=== PATIENT | female | born 1980 | race Caucasian/White ===

== ENCOUNTER 2018-11-04 11:01 | Emergency (ER) | payer SELFPAY ==
[2018-11-04] MEDS ORDERED: MORPHINE 4 MG/ML SYR ONE (12:23)
[2018-11-04] MEDS ORDERED: ONDANSETRON 4 MG/2 ML VIAL ONE (12:23)
[2018-11-04 12:42] LABS: Barbiturates NEGATIVE (NEGATIVE); Benzodiazepines NEGATIVE (NEGATIVE); Cocaine NEGATIVE (NEGATIVE); METHAMPHETAM POSITIVE (NEGATIVE); Methadone NEGATIVE (NEGATIVE); Opiates NEGATIVE (NEGATIVE); Phencyclidine NEGATIVE (NEGATIVE); THC Cannibis POSITIVE (NEGATIVE)
[2018-11-04 12:43] LABS: Absolute Monocytes 0.6 K/uL (0.1-1.3); Absolute Neutrophil 6.2 K/uL (1.8-8.0); Basophils % 0.6 % (0-1.3); Hematocrit 41.7 % (36.0-45.0); Lymphocytes % 29.2 % (15.3-44.8); MPV 8.2 fL (7.6-11.3); Monocytes % 5.5 % (3.3-12.3); RBC Red Blood Cell Count 4.56 M/uL (3.86-4.86)
[2018-11-04] MEDS ORDERED: KETOROLAC 30 MG/ML INJ ONE (12:58)
[2018-11-04 13:01] LABS: ALT/SGPT 29 U/L (12-78); AST/SGOT 12 U/L (15-37); Alkaline Phosphatase 109 U/L (45-117); BUN Blood Urea Nitrogen 10 mg/dL (7-18); Bicarbonate 31 mmol/L (21-32); Bilirubin Total 0.2 mg/dL (0.2-1.0); Glucose Level 90 mg/dL (74-106); Potassium 4.2 mmol/L (3.5-5.1); Protein, Total 7.6 g/dL (6.4-8.2); Sodium Level 139 mmol/L (136-145)
--- NOTE | 2018-11-04 14:25 | RAD REPORT ---
EXAM DESCRIPTION: CTSpine Lumbar W/Cont3/ 2:13 pm CLINICAL HISTORY: Back pain/radiculopathy COMPARISON: None TECHNIQUE: Computed axial tomography lumbar spine was obtained with coronal and sagittal reconstruct ion. 50 cc Isovue-[address] scans are performed using dose optimization technique as appropriate and may include automated exposure control or mA/KV adjustment according to patient size. FINDINGS: Mild to moderate compression fracture involves the L1 vertebral body. Loss of vertebral he ight approximately 35%. The fracture appears subacute. Retropulsion of bone into the spinal canal res ults in approximately 15% spinal stenosis. Fractures involve the right transverse processes of L2, L3 and L4. Callus formation is present at the fracture sites. The fracture appears late subacute. A large bulging/disc herniation is not seen. No abnormal enhancement is displayed. IMPRESSION: Mild to moderate compression fracture involves the L1 vertebral body which appears subac [place] L2, L3 and L4 right transverse processes fractures which appear late subacute
--- NOTE | 2018-11-04 15:10 | ER ---
Nurse's Notes [facility] Name: Janine Mcgee Age: 38 yrs Sex: Female : 1980 Arrival Date: 11/04/2018 Time: 11:03 Bed 10 Private MD: Diagnosis: Fracture of first lumbar vertebra Presentation: 11/04 11:12 Presenting complaint: Patient states: Low back pain for about 5 days now, reports sg worsening with laying flat in bed, reports painful with ambulation, denies any urinary symtpoms, denies history of kidney stones, reports nausea. Transition of care: patient was not received from another setting of care. Onset of symptoms was November 04, 2018. Risk Assessment: Do you want to hurt yourself or someone else? Patient reports no desire to harm self or others. Initial Sepsis Screen: Does the patient meet any 2 criteria? No. Patient's initial sepsis screen is negative. Does the patient have a suspected source of infection? No. Patient's initial sepsis screen is negative. Care prior to arrival: None. 11:12 Method Of Arrival: Ambulatory sg 11:12 Acuity: KRISTI 4 sg RISK ANALYST: 11:10 LMP 11/04/2018 sg Historical: - Allergies: 11:10 No Known Allergies; sg - Home Meds: 11:10 None [Active]; sg - PMHx: 11:30 Uses Meth (injected); aa5 - PSHx: 11:10 None; sg - Immunization history:: Adult Immunizations not up to date. - Social history:: Smoking status: Patient uses tobacco products, smokes one-half pack cigarettes per day, Patient uses street drugs, Methamphetamine (Meth) injected . - Ebola Screening: : Patient negative for fever greater than or equal to 101.5 degrees Fahrenheit, and additional compatible Ebola Virus Disease symptoms Patient denies exposure to infectious person Patient denies travel to an Ebola-affected area in the 21 days before illness onset No symptoms or risks identified at this time. Screenin:00 Abuse screen: Denies threats or abuse. Nutritional screening: No deficits noted. aa5 Tuberculosis screening: No symptoms or risk factors identified. Fall Risk None identified. Assessment: 11:30 General: Appears uncomfortable, Behavior is calm, cooperative. Pain: Complains of pain aa5 in lumbar area, left low back and right low back Pain currently is 10 out of 10 on a pain scale. Quality of pain is described as sharp, shooting, Pain began x 5 days ago Is continuous, Aggravated by supine position. Neuro: Level of Consciousness is awake, alert, obeys commands, Oriented to person, place, time, situation. Cardiovascular: Heart tones S1 S2 present Rhythm is regular. Respiratory: Airway is patent Respiratory effort is even, unlabored, Respiratory pattern is regular, symmetrical. GI: No signs and/or symptoms were reported involving the gastrointestinal system. Patient currently denies nausea, vomiting. : No signs and/or symptoms were reported regarding the genitourinary system. EENT: No signs and/or symptoms were reported regarding the EENT system. Derm: Skin is pink, warm \\T\\ dry. Musculoskeletal: Range of motion: intact in all extremities. 11:30 Reassessment: Pt denies known injury. . aa5 12:23 Reassessment: Patient and/or family updated on plan of care and expected duration. Pain aa5 level reassessed. Patient is alert, oriented x 3, equal unlabored respirations, skin warm/dry/pink. Notified of wait time for lab results. Pt's family at bedside. Call mclean within reach . 12:45 Reassessment: Patient is alert, oriented x 3, equal unlabored respirations, skin aa5 warm/dry/pink. Pt states "the morphine only helped a little bit". Rates pain a 8/10 on a pain scale. PA notified. . 13:00 Reassessment: Patient is alert, oriented x 3, equal unlabored respirations, skin aa5 warm/dry/pink. Awaiting CT scan, pt notified of wait time . 14:00 Reassessment: Patient is alert, oriented x 3, equal unlabored respirations, skin aa5 warm/dry/pink. Patient states feeling better. Pain: Pain currently is 6 out of 10 on a pain scale. 15:10 Reassessment: Patient is alert, oriented x 3, equal unlabored respirations, skin aa5 warm/dry/pink. Patient states feeling better. Vital Signs: 11:10 BP 118 / 78; Pulse 87; Resp 18; Temp 98.3; Pulse Ox 100% ; Weight 81.65 kg (R); Height sg 5 ft. 5 in. (165.10 cm); Pain 10/10; 12:20 BP 111 / 77; Pulse 94; Resp 18 S; Pulse Ox 100% on R/A; Pain 9/10; aa5 12:54 BP 101 / 75; Pulse 75; Resp 16 S; Pulse Ox 99% on R/A; aa5 14:00 BP 107 / 70; Pulse 74; Resp 16 S; Temp 98.0(TE); Pulse Ox 99% on R/A; aa5 15:10 BP 108 / 74; Pulse 75; Resp 18 S; Pulse Ox 100% on R/A; aa5 11:10 Body Mass Index 29.95 (81.65 kg, 165.10 cm) ED Course: 11:03 Patient arrived in ED. as 11:08 Arm band placed on. sg 11:13 Triage completed. sg 11:19 Neha Cassidy, ANDREA is Primary Nurse. aa5 11:20 Venkata Garg PA is PHCP. [facility] 11:20 Lupillo Alvarez MD is Attending Physician. jmm 11:30 Patient has correct armband on for positive identification. Bed in low position. Call aa5 light in reach. Side rails up X 1. Adult w/ patient. 12:15 Inserted saline lock: 20 gauge in right antecubital area, using aseptic technique. jp3 Blood collected. 12:15 Initial lab(s) drawn, by me, sent to lab. First set of blood cultures drawn. jp3 12:25 Second set of blood cultures drawn by me. jp3 12:31 Blood Culture Adult (2) Sent. jp3 12:31 ESR Sent. jp3 12:31 Lactate Sent. jp3 12:31 Procalcitonin Sent. jp3 12:31 CMP Sent. jp3 12:31 CBC with Diff Sent. jp3 12:39 Radiology exam delayed due to lab results not completed at this time. (BUN/Creatinine). mw3 14:13 Spine Lumbar W/Cont In Process Unspecified. EDMS 15:08 Washington Dalton MD is Referral Physician. jmm 15:10 No provider procedures requiring assistance completed. IV discontinued, intact, aa5 bleeding controlled, No redness/swelling at site. Pressure dressing applied. Administered Medications: 12:22 Drug: morphine 4 mg Route: IVP; Site: right antecubital; aa5 12:30 Follow up: Response: No adverse reaction aa5 12:22 Drug: Zofran 4 mg Route: IVP; Site: right antecubital; aa5 12:30 Follow up: Response: No adverse reaction aa5 12:46 Drug: TORadol 30 mg Route: IVP; Site: right antecubital; aa5 12:54 Follow up: Response: No adverse reaction aa5 Outcome: 15:09 Discharge ordered by . dahiana 15:13 Discharged to home ambulatory, with significant other. aa5 15:13 Condition: improved 15:13 Discharge instructions given to patient, Instructed on discharge instructions, follow up and referral plans. medication usage, Demonstrated understanding of instructions, follow-up care, medications, Prescriptions given X 1. 15:16 Patient left the ED. aa5 Signatures: Dispatcher [employer] EDMS Ted Spencer RN RN Venkata Denton PA PA jmm Martinez, Amelia as Calderon, Audri, RN RN aa5 Sintia Barragan mw3 Archie Gonzalez jp3 Corrections: (The following items were deleted from the chart) 12:39 12:38 Radiology exam delayed due to lab results not completed at this time. mw3 (BUN/Creatinine) test not completed at this time. mw3 12:52 11:30 Pain: Complains of pain in lumbar area, left low back and right low back Pain aa5 currently is 10 out of 10 on a pain scale. Quality of pain is described as sharp, shooting, Pain began Is continuous, Aggravated by supine position. aa5 13:10 11:10 PMHx: None; aa5
--- NOTE | 2018-11-04 15:10 | EDPHYS ---
Physician Documentation [facility] Name: Janine Mcgee Age: 38 yrs Sex: Female : 1980 Arrival Date: 11/04/2018 Time: 11:03 Bed 10 Private MD: ED Physician Lupillo Alvarez HPI: 11/04 12:00 This 38 yrs old Female presents to ER via Ambulatory with complaints of Low jmm Back Pain. 12:00 The patient presents with pain that is acute. Onset: The symptoms/episode jmm began/occurred gradually, 5 day(s) ago. Modifying factors: The patient symptoms are alleviated by nothing, the patient symptoms are aggravated by walking. This is a 38 year old female that presents to the ED with complaints of lower back pain beginning approx 5 days ago. Patient denies radiation of pain. Patient denies fever, denies dysuria, denies weakness to her legs, denies fecal incontinence. . ENCODING CLERK: 11:10 LMP 11/04/2018 sg Historical: - Allergies: 11:10 No Known Allergies; sg - Home Meds: 11:10 None [Active]; sg - PMHx: 11:30 Uses Meth (injected); aa5 - PSHx: 11:10 None; sg - Immunization history:: Adult Immunizations not up to date. - Social history:: Smoking status: Patient uses tobacco products, smokes one-half pack cigarettes per day, Patient uses street drugs, Methamphetamine (Meth) injected . - Ebola Screening: : Patient negative for fever greater than or equal to 101.5 degrees Fahrenheit, and additional compatible Ebola Virus Disease symptoms Patient denies exposure to infectious person Patient denies travel to an Ebola-affected area in the 21 days before illness onset No symptoms or risks identified at this time. ROS: 12:00 Constitutional: Negative for fever, chills, and weight loss, Cardiovascular: Negative jmm for chest pain, palpitations, and edema, Respiratory: Negative for shortness of breath, cough, wheezing, and pleuritic chest pain. 12:00 Back: Positive for pain with movement. 12:00 All other systems are negative. Exam: 12:00 Head/Face: atraumatic. Eyes: EOMI, no conjunctival erythema appreciated ENT: Moist jmm Mucus Membranes Neck: Trachea midline, Supple Chest/axilla: Normal chest wall appearance and motion. Cardiovascular: Regular rate and rhythm. No edema appreciated Respiratory: Normal respirations, no respiratory distress appreciated Abdomen/GI: Non distended, soft 12:00 Constitutional: The patient appears in no acute distress, alert, awake. 12:00 Back: pain, that is moderate, of the lumbar area. 12:00 Musculoskeletal/extremity: ROM: intact in all extremities, extensor hallucis longus intact bilaterally. 12:00 Skin: Appearance: Color: normal in color. 12:00 Neuro: Orientation: is normal, Mentation: is normal, Memory: is normal. 12:00 Psych: Behavior/mood is pleasant, cooperative. Vital Signs: 11:10 BP 118 / 78; Pulse 87; Resp 18; Temp 98.3; Pulse Ox 100% ; Weight 81.65 kg (R); Height sg 5 ft. 5 in. (165.10 cm); Pain 10/10; 12:20 BP 111 / 77; Pulse 94; Resp 18 S; Pulse Ox 100% on R/A; Pain 9/10; aa5 12:54 BP 101 / 75; Pulse 75; Resp 16 S; Pulse Ox 99% on R/A; aa5 14:00 BP 107 / 70; Pulse 74; Resp 16 S; Temp 98.0(TE); Pulse Ox 99% on R/A; aa5 15:10 BP 108 / 74; Pulse 75; Resp 18 S; Pulse Ox 100% on R/A; aa5 11:10 Body Mass Index 29.95 (81.65 kg, 165.10 cm) sg MDM: 12:05 Patient medically screened. [facility] 13:50 Data reviewed: vital signs, nurses notes. [facility] 15:07 Data reviewed: lab test result(s), radiologic studies, plain films. Counseling: I had a [facility] detailed discussion with the patient and/or guardian regarding: the historical points, exam findings, and any diagnostic results supporting the discharge/admit diagnosis, radiology results, the need for outpatient follow up, to return to the emergency department if symptoms worsen or persist or if there are any questions or concerns that arise at home. Response to treatment: the patient's symptoms have markedly improved after treatment. 11/04 11:22 Order name: Urine Dipstick--Ancillary (enter results) eb 11/04 11:22 Order name: Urine --Ancillary (enter results) eb 11/04 12:01 Order name: CBC with Diff; Complete Time: 14:02 [facility] 11/04 12:01 Order name: CMP; Complete Time: 13:02 [facility] 11/04 12:01 Order name: Procalcitonin [facility] 11/04 12:01 Order name: Lactate; Complete Time: 13:25 [facility] 11/04 12:01 Order name: Urine Drug Screen; Complete Time: 13:02 [facility] 11/04 12:01 Order name: ESR; Complete Time: 14:02 [facility] 11/04 12:11 Order name: Blood Culture Adult (2) [facility] 11/04 12:30 Order name: Spine Lumbar W/Cont; Complete Time: 14:29 [facility] 11/04 12:01 Order name: Saline Lock; Complete Time: 12:22 [facility] 11/04 12:01 Order name: Urine Dipstick-Ancillary (obtain specimen); Complete Time: 12:06 [facility] Administered Medications: 12:22 Drug: morphine 4 mg Route: IVP; Site: right antecubital; aa5 12:30 Follow up: Response: No adverse reaction aa5 12:22 Drug: Zofran 4 mg Route: IVP; Site: right antecubital; aa5 12:30 Follow up: Response: No adverse reaction aa5 12:46 Drug: TORadol 30 mg Route: IVP; Site: right antecubital; aa5 12:54 Follow up: Response: No adverse reaction aa5 Disposition: 18:12 Co-signature as Attending Physician, Lupillo Alvarez MD. rn Disposition: 11/04/18 15:09 Discharged to Home. Impression: Fracture of first lumbar vertebra. - Condition is Stable. - Discharge Instructions: Vertebral Fracture. - Prescriptions for Ibuprofen 800 mg Oral Tablet - take 1 tablet by ORAL route every 8 hours As needed take with food; 30 tablet. - Medication Reconciliation Form, Thank You Letter, Antibiotic Education, Prescription Opioid Use form. - Follow up: Washington Dalton MD; When: 2 - 3 days; Reason: Recheck today's complaints, Continuance of care, Re-evaluation by your physician. Signatures: Dispatcher [employer] EDMS Ted Spencer, RN RN Venkata Denton PA PA [facility] Lupillo Alvarez MD MD rn Calderon, Audri RN RN aa5 Corrections: (The following items were deleted from the chart) 12:49 12:30 Thoracic Spine W/Cont ordered. EDMS EDMS 12:50 12:30 C Spine W/ Con ordered. EDMS EDMS 13:10 11:10 PMHx: None; sg aa5 15:16 15:09 11/04/2018 15:09 Discharged to Home. Impression: Fracture of first lumbar aa5 vertebra. Condition is Stable. Forms are Medication Reconciliation Form, Thank You Letter, Antibiotic Education, Prescription Opioid Use. Follow up: Washington Dalton; When: 2 - 3 days; Reason: Recheck today's complaints, Continuance of care, Re-evaluation by your physician. dahiana
[2018-11-04 16:23] LABS: Urine Blood NEGATIVE (NEG); Urine Glucose NEGATIVE (NEG); Urine Protein NEGATIVE (NEG); Urine Specific Gravity 1.015 (1.005-1.030); Urine pH 6.5 (5.0-7.0)
== END 2018-11-04 15:16 | disposition home or self-care (01) ==
LOC: ER 11:01
DX: S32.019A Unspecified fracture of first lumbar vertebra, initial encounter for closed fracture (principal); F17.210 Nicotine dependence, cigarettes, uncomplicated
CPT/HCPCS: 36415; 72132; 80053; 80307; 81003; 81025; 83605; 84145; 85025; 85652; 87040; 96374; 96375; 99284; J2405; Q9967